=== PATIENT | female | born 1995 | race Caucasian/White ===

== ENCOUNTER 2016-10-27 15:03 | Emergency (ER) | payer SELFPAY ==
[2016-10-27 16:03] VITALS: BP 132/61
--- NOTE | 2016-10-27 17:16 | UC ---
Complaint Female HPI - HPI Summary HPI Summary: About 2 weeks ago had yeast infection which she treated successfully with an OTC yeast treatment. Was feeling better for 4-5 days, then since yesterday has had the "mildest sense of a very early UTI." Had pyelonephritis a year ago and is nervous about it returning. Rufus feverish today and other people felt her forehead and thought she might have a fever. Denies vomiting, rash, ST, or other signs of illness. - History Of Current Complaint Chief Complaint: UCGU Stated Complaint: FEVER URINARY ISSUE Time Seen by Provider: 10/27/16 16:44 Hx Obtained From: Patient Hx Last Menstrual Period: 10/18/16 ?: No Onset/Duration: Gradual Onset, Lasting Days Timing: Constant Severity Initially: Mild Severity Currently: Mild Character: Burning Aggravating Factor(s): Urination Associated Signs And Symptoms: Positive: Negative - Allergies/Home Medications Allergies/Adverse Reactions: Allergies Allergy/AdvReac Type Severity Reaction Status Date / Time No Known Allergies Allergy Verified 02/27/16 12:01 Home Medications: Home Medications NK [No Home Medications Reported] 10/27/16 [History Confirmed 10/27/16] PMH/Surg Hx/FS Hx/Imm Hx Previously Healthy: Yes - Surgical History Surgical History: None Surgery Procedure, Year, and Place: no past surgical history - Family History Known Family History: Positive: Other - UTI (mother) Negative: Hypertension, Diabetes, Renal Disease - Social History Lives: Alone Alcohol Use: Rare Substance Use Type: Marijuana Substance Use Comment - Amount & Last Used: occ Smoking Status (MU): Former Smoker Amount Used/How Often: once monthly, hasn't used recently Have You Smoked in the Last Year: Yes - very rarely - Immunization History Most Recent Influenza Vaccination: unk Most Recent Tetanus Shot: current Most Recent Pneumonia Vaccination: n/a Review of Systems Constitutional: Fever - subj Skin: Negative Eyes: Negative ENT: Negative Respiratory: Negative Cardiovascular: Negative Gastrointestinal: Negative Genitourinary: Dysuria Motor: Negative Neurovascular: Negative Musculoskeletal: Negative Neurological: Negative Psychological: Negative All Other Systems Reviewed And Are Negative: Yes Physical Exam Triage Information Reviewed: Yes Appearance: Well-Appearing, No Pain Distress, Thin Vital Signs: Initial Vital Signs Temp 98.2 F 10/27/16 16:00 Pulse 53 10/27/16 16:00 Resp 16 10/27/16 16:00 BP 132/61 10/27/16 16:00 Pulse Ox 100 10/27/16 16:00 Vital Signs Reviewed: Yes Eye Exam: Normal Eyes: Positive: Conjunctiva Clear ENT Exam: Normal ENT: Positive: Normal ENT inspection, Hearing grossly normal, Pharynx normal, TMs normal Dental Exam: Normal Neck exam: Normal Neck: Positive: Supple, Nontender, No Lymphadenopathy Respiratory Exam: Normal Respiratory: Positive: Chest non-tender, Lungs clear, Normal breath sounds, No respiratory distress, No accessory muscle use Cardiovascular Exam: Normal Cardiovascular: Positive: RRR, No Murmur Abdomen Description: Positive: Nontender, Soft. Negative: CVA Tenderness (R), CVA Tenderness (L) Musculoskeletal Exam: Normal Neurological Exam: Normal Neurological: Positive: Alert Psychological Exam: Normal Skin Exam: Normal Complaint Female Dx - Differential Dx/Diagnosis Provider Diagnoses: dysuria Discharge - Discharge Plan Condition: Stable Disposition: HOME Patient Education Materials: Dysuria (ED) Referrals: No Primary Care Phys,NOPCP [Primary Care Provider] - Additional Instructions: As we discussed, neither your symptoms nor your urine dip give any strong indication of infection so we are waiting on a urine culture before considering antibiotics. Please call here if you have new or worsening urinary symptoms; we will be in contact with you if your culture shows a bacterial infection.
== END 2016-10-27 17:15 | disposition home or self-care (01) ==
LOC: UCEAST 15:03
DX: R30.0 Dysuria (principal)
CPT/HCPCS: 81003; 84702; 87086; 99211; G0463

== ENCOUNTER 2017-05-13 15:03 | Emergency (ER) | payer OTHER ==
--- NOTE | 2017-05-13 17:33 | UC ---
Lower Extremity/Ankle HPI - HPI Summary HPI Summary: 21 year old female with no significant pmhx here with complaint of right knee pain after she everted her knee while walking. She reports pain and swelling worsening in the past two days. She has been taking ibuprofen for the pain. No other associated symptoms. - History of Current Complaint Chief Complaint: UCLowerExtremity Stated Complaint: ANKLE INJURY Time Seen by Provider: 05/13/17 17:11 Hx Last Menstrual Period: 03/31/17 Onset/Duration: Sudden Onset Severity Initially: Mild Severity Currently: Moderate Pain Scale Used: 0-10 Numeric Aggravating Factor(s): Ambulation Alleviating Factor(s): Rest - Allergies/Home Medications Allergies/Adverse Reactions: Allergies Allergy/AdvReac Type Severity Reaction Status Date / Time No Known Allergies Allergy Verified 05/13/17 16:35 PMH/Surg Hx/FS Hx/Imm Hx - Surgical History Surgical History: None Surgery Procedure, Year, and Place: no past surgical history - Family History Known Family History: Positive: Other - UTI (mother) Negative: Hypertension, Diabetes, Renal Disease - Social History Alcohol Use: Rare Substance Use Type: Marijuana Substance Use Comment - Amount & Last Used: occ Smoking Status (MU): Former Smoker Amount Used/How Often: once monthly, hasn't used recently Have You Smoked in the Last Year: Yes - very rarely - Immunization History Most Recent Influenza Vaccination: unk Most Recent Tetanus Shot: current Most Recent Pneumonia Vaccination: n/a Review of Systems Constitutional: Negative Skin: Negative Eyes: Negative ENT: Negative Respiratory: Negative Cardiovascular: Negative Gastrointestinal: Negative Genitourinary: Negative Motor: Negative Neurovascular: Negative Musculoskeletal: Edema Neurological: Negative Psychological: Negative All Other Systems Reviewed And Are Negative: Yes Physical Exam Triage Information Reviewed: Yes Appearance: Well-Appearing, No Pain Distress Vital Signs: Initial Vital Signs Temp 36.4 C 05/13/17 16:37 Pulse 67 05/13/17 16:37 Resp 17 05/13/17 16:37 BP 120/59 05/13/17 16:37 Pulse Ox 100 05/13/17 16:37 Eye Exam: Normal ENT Exam: Normal Cardiovascular Exam: Normal Abdominal Exam: Normal Musculoskeletal: Positive: Edema @ - right ankle TTP over right lateral malleolus DP/PT intact no abrasion Diagnostics - Radiology No standard instances Xray Interpretation: Positive (See Comments) - Soft tissues swelling over lateral mall Lower Extremity Course/Dx - Course Course Of Treatment: Ibuprofen and ICE given. Normal gait - Differential Dx/Diagnosis Differential Diagnosis/HQI/PQRI: Fracture (Closed), Sprain, Strain Provider Diagnoses: Ankle sprain Discharge - Discharge Plan Condition: Good Disposition: HOME Referrals: No Primary Care Phys,NOPCP [Primary Care Provider] -
--- NOTE | 2017-05-13 17:48 | RAD ---
HISTORY: Tenderness to palpation over lateral malleolus COMPARISONS: None VIEWS: 4, Frontal and lateral views of the right foot and ankle FINDINGS: BONE DENSITY: Normal. BONES: There is no displaced fracture. JOINTS: There is no arthropathy. ALIGNMENT: There is no dislocation. SOFT TISSUES: There is mild soft tissue swelling along the lateral ankle. OTHER FINDINGS: None. IMPRESSION: SOFT TISSUE SWELLING. NO ACUTE OSSEOUS INJURY TO THE RIGHT FOOT OR RIGHT ANKLE. IF SYMPTOMS PERSIST, RECOMMEND REPEAT IMAGING.
[2017-05-13] MEDS: Ibuprofen TAB* 600 MG PO ONE (17:59)
[2017-05-13 19:15] VITALS: BP 124/70
== END 2017-05-13 18:40 | disposition home or self-care (01) ==
LOC: UCEAST 15:03
DX: S93.401A Sprain of unspecified ligament of right ankle, initial encounter (principal); X50.0XXA Overexertion from strenuous movement or load, initial encounter; Y93.01 Activity, walking, marching and hiking; Y92.9 Unspecified place or not applicable; Y99.9 Unspecified external cause status; F12.90 Cannabis use, unspecified, uncomplicated; Z87.891 Personal history of nicotine dependence
CPT/HCPCS: 99212; A9270-GY; G0463

== ENCOUNTER 2017-06-01 16:34 | Emergency (ER) | payer OTHER ==
[2017-06-01 17:06] VITALS: BP 111/70
--- NOTE | 2017-06-01 17:32 | UC ---
Lower Extremity/Ankle HPI - HPI Summary HPI Summary: Pt presents with continued right ankle pain. She was seen her on 05/13/17 after sustaining an inversion injury to her right ankle. She tells me that she was walking and "turned her ankle weird". XR that day was negative. She was told to take ibuprofen and follow up with ortho if symptoms persisted. She is here today with continued right ankle pain. She tells me that she tried calling Orthopedics, but could never get through to them. 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 When she has a few days off, her ankle will feel fine - but upon returning to her usual work duties , her pain returned. Has been taking 400-600mg ibuprofen daily with good relief. Denies fever, chills, new injury, SOB, numbness, or tingling. - History of Current Complaint Chief Complaint: UCLowerExtremity Stated Complaint: ANKLE INJURY Time Seen by Provider: 06/01/17 17:32 Hx Obtained From: Patient Hx Last Menstrual Period: now Onset/Duration: Gradual Onset Severity Initially: Moderate Severity Currently: Mild Pain Intensity: 3 Pain Scale Used: 0-10 Numeric Aggravating Factor(s): Standing, Ambulation Alleviating Factor(s): Rest Able to Bear Weight: Yes - Allergies/Home Medications Allergies/Adverse Reactions: Allergies Allergy/AdvReac Type Severity Reaction Status Date / Time No Known Allergies Allergy Verified 06/01/17 17:06 PMH/Surg Hx/FS Hx/Imm Hx Previously Healthy: Yes - Surgical History Surgical History: None Surgery Procedure, Year, and Place: no past surgical history - Family History Known Family History: Positive: Other - UTI (mother) Negative: Hypertension, Diabetes, Renal Disease - Social History Occupation: Employed Full-time Lives: Alone Alcohol Use: Rare Substance Use Type: None Smoking Status (MU): Former Smoker Amount Used/How Often: once monthly, hasn't used recently Have You Smoked in the Last Year: Yes - very rarely - Immunization History Most Recent Influenza Vaccination: unk Most Recent Tetanus Shot: current Most Recent Pneumonia Vaccination: n/a Review of Systems Constitutional: Negative Skin: Negative Respiratory: Negative Cardiovascular: Negative Musculoskeletal: Other: - Right ankle pain Neurological: Negative All Other Systems Reviewed And Are Negative: Yes Physical Exam Triage Information Reviewed: Yes Appearance: Well-Appearing, No Pain Distress, Well-Nourished Vital Signs: Initial Vital Signs Temp 99.0 F 06/01/17 17:01 Pulse 72 06/01/17 17:01 Resp 16 06/01/17 17:01 BP 111/70 06/01/17 17:01 Pulse Ox 99 06/01/17 17:01 Vital Signs Reviewed: Yes Respiratory: Positive: Chest non-tender, Lungs clear, Normal breath sounds Cardiovascular: Positive: RRR, No Murmur, Pulses Normal - DP intact, Brisk Capillary Refill - Right foot and all toes Musculoskeletal: Positive: Strength Intact - Right ankle, ROM Intact - Right ankle, No Edema - Right ankle, Other: - Right ankle: Mild TTP over posterolateral malleolus. No obvious bony deformities or increased laxity. Neurological: Positive: Alert, Other: - Sensations intact right foot and all toes. Psychological: Positive: Age Appropriate Behavior Skin: Positive: Other - Right ankle/foot: No ecchymosis or erythema. Lower Extremity Course/Dx - Course Course Of Treatment: Ankle XR: Negative for fracture or malalignment. Gross resolution of previous lateral soft tissue swelling. Ongoing right ankle pain. I placed her in a CAM walking boot and have advised her to try light duty at work for the next 5 days. RICE and call orthopedics at the number provided for a follow up appointment. She is having good relief with ibuprofen, may keep taking 400 to 600mg q8hrs prn. - Differential Dx/Diagnosis Differential Diagnosis/HQI/PQRI: Bursitis, Contusion, Dislocation, Fracture ( Closed), Sprain, Strain, Tendonitis Provider Diagnoses: Right ankle sprain Discharge - Discharge Plan Condition: Stable Disposition: HOME Patient Education Materials: Ankle Sprain (ED) Forms: *Work Release Referrals: No Primary Care Phys,NOPCP [Primary Care Provider] - Jameel Sharma MD [Medical Doctor] - As Soon As Possible Additional Instructions: If you develop a fever, shortness of breath, chest pain, new or worsening symptoms - please call your PCP or go to the ED. 1) Use the CAM boot as much as possible while your ankle is healing. May take ibuprofen 600mg every 8 hours as needed for pain/swelling. 2) Try light duty at work for the rest of the week. Rest, ice, and elevate your ankle when at home. 3) Please call the number below to schedule a follow up appointment with Orthopedics.
--- NOTE | 2017-06-01 17:45 | RAD ---
Indication: Continued posterior RIGHT ankle pain and swelling following twisting injury 3 weeks ago. Comparison: May 13, 2017 Technique: AP, mortise, and lateral views RIGHT ankle. Report: Normal articular alignment and preserved joint spaces. Negative for fracture or osteochondral lesion. Unremarkable soft tissue contours. IMPRESSION: Negative for fracture or malalignment. Gross resolution of previous lateral soft tissue swelling.
== END 2017-06-01 18:15 | disposition home or self-care (01) ==
LOC: UCEAST 16:34
DX: S93.401A Sprain of unspecified ligament of right ankle, initial encounter (principal); Z87.891 Personal history of nicotine dependence; X50.9XXA Other and unspecified overexertion or strenuous movements or postures, initial encounter; Y92.9 Unspecified place or not applicable
CPT/HCPCS: 99212; G0463

== ENCOUNTER 2019-02-22 19:35 | Emergency (ER) | payer OTHER ==
[2019-02-22 19:58] VITALS: BP 119/60
--- NOTE | 2019-02-22 20:45 | UC ---
General HPI - HPI Summary HPI Summary: Pt had cold sx, resolved. Now with 3 days congestion, cough, fever to 103 and fatigue. ears feels plugged. no rash. taking OTC meds with improvedment. No wolfe , vision changes works as fountain waitress/waiter. not medications reviewed - History of Current Complaint Chief Complaint: UCRespiratory Stated Complaint: FEVER, COUGH Time Seen by Provider: 02/22/19 20:42 Hx Obtained From: Patient Hx Last Menstrual Period: 1 month ago Onset/Duration: Gradual Onset Onset Severity: Mild Current Severity: Moderate Pain Intensity: 5 - Allergy/Home Medications Allergies/Adverse Reactions: Allergies Allergy/AdvReac Type Severity Reaction Status Date / Time No Known Allergies Allergy Verified 02/22/19 19:52 Home Medications: Home Medications D-Methorphan/PE/Acetaminophen [Cold Relief/Non-Drowsy/Da 10-5-325 mg] 1 tab PO Q12HR PRN 02/22/19 [History Confirmed 02/22/19] PMH/Surg Hx/FS Hx/Imm Hx Previously Healthy: Yes - Surgical History Surgical History: None Surgery Procedure, Year, and Place: no past surgical history - Family History Known Family History: Positive: Other - UTI (mother) Negative: Hypertension, Diabetes, Renal Disease - Social History Occupation: Employed Part-time Lives: With Family Alcohol Use: Weekly Substance Use Type: Marijuana Substance Use Comment - Amount & Last Used: occasionally Smoking Status (MU): Current Some Day Smoker Amount Used/How Often: once monthly, hasn't used recently Have You Smoked in the Last Year: Yes - very rarely - Immunization History Most Recent Influenza Vaccination: unk Most Recent Tetanus Shot: current Most Recent Pneumonia Vaccination: n/a Review of Systems All Other Systems Reviewed And Are Negative: Yes Constitutional: Positive: Fever, Fatigue ENT: Positive: Ear Ache, Sinus Congestion Respiratory: Positive: Cough. Negative: Shortness Of Breath Cardiovascular: Positive: Negative Gastrointestinal: Positive: Negative Physical Exam - Summary Physical Exam Summary: Vital Signs Reviewed: Yes A+Ox3, no distress, mild cough Eyes: Conjunctiva Clear, JOSE G. EOM intact and full ENT: Hearing grossly normal TM x 2 visualized, mild edema left ear, mmoist, uvula midline, no exudate, no erythema Neck: Positive: Supple Respiratory: Positive: No respiratory distress, No accessory muscle use mild cough slight rhonci right base, no wheeze, no accesssory muscle Crdiovascular: RRR nl s1, s2 no m/r CBT <2 sec abd soft + BS nt/nd no guarding, no distension Musculoskeletal Exam: WATERS x 4 without difficulty Strength Intact, ROM Intact Neurological: Positive: Alert, + sensation throughout Psychological: Positive: Normal Response To circular tank cooper Skin: Positive: no rash, no ecchymosis Triage Information Reviewed: Yes Vital Signs: Initial Vital Signs Temp 100.8 F 02/22/19 19:53 Pulse 92 02/22/19 19:53 Resp 18 02/22/19 19:53 BP 119/60 02/22/19 19:53 Pulse Ox 97 02/22/19 19:53 Diagnostics - Radiology No standard instances Radiology Interpretation Completed By: ED Physician - RLDillon pna Re-Evaluation - Re-Evaluation First Eval Comment: reviewed cxr - aware prelim read. hdyarte. secretion precuation. abx. wor notes. return precautions Course/Dx - Course Course Of Treatment: Pt with congestion, fever, cough progressive x 3 days. Pt with occasional smoking vss pt with head congestion, slight rhonci right base will check chest xray, rapid strep, reassess - Diagnoses Provider Diagnosis: Pneumonia, community acquired Discharge ED - Sign-Out/Discharge Documenting (check all that apply): Patient Departure All imaging exams completed and their final reports reviewed: No - Discharge Plan Condition: Stable Disposition: HOME Prescriptions: Amoxicillin/Clavulanate TAB* [Augmentin TAB 875*] 875 mg PO BID #20 tab Patient Education Materials: Ear Infection (ED), Community Acquired Pneumonia ( ED) Forms: *Work Release Referrals: [facility] [place] PHYSICIAN REFERRAL [Outside] No Primary Care Phys,NOPCP [Primary Care Provider] - Additional Instructions: - Okay to alternate ibuprofen (Advil, Motrin) and Tylenol every 3 hours for fever and pain. Take with food. Do NOT take for more than 4-5 days - Okay to gargle and spit every 4 hours as needed for pain - Stay well hydrated - frequent sips of cold fluids will be soothing to your throat (popsicles, jello, ice cream, ice water). Avoid excess caffeine until your symptoms have resolved. - Do not share eating, drinking utensils. Throw out your toothbrush when your symptoms resolved -Throat infections are spread by oral secretions - do not share eating or drinking utensils until you symptoms are resolved. Clean items that may get your secretions such as cell phones, ipads, computer mouse, television remotes. Once you have been on antibiotics for 2 days, change your toothbrush and your pillowcase - get plenty of restful sleep - okay to take over the counter decongestant and cough mediations - Contact your doctor to arrange a follow-up appointment as needed As discussed your imaging study was not reviewed by a radiologist ernestine. A radiologist will review tomorrow - if there is a different treatment plan you will receive a call from a care application development team lead - Billing Disposition and Condition Condition: STABLE Disposition: Home
[2019-02-22] MEDS ORDERED: Ibuprofen TAB* 600 MG PO ONE (20:51)
[2019-02-22] MEDS ORDERED: Amoxicillin/Clavulanate TAB* 875 MG PO ONE (21:08)
--- NOTE | 2019-02-23 12:12 | UC ---
- Progress Note Progress Note: Final radiologist reading of chest x-ray from February 23, 2019 comes back as right lower lobe consolidation. Provider interpretation same date is right lower lobe pneumonia therefore there is no discrepancy. Course/Dx - Diagnoses Provider Diagnoses: Pneumonia, community acquired Discharge ED - Sign-Out/Discharge Documenting (check all that apply): Patient Departure All imaging exams completed and their final reports reviewed: Yes - Discharge Plan Condition: Stable Disposition: HOME Prescriptions: Amoxicillin/Clavulanate TAB* [Augmentin TAB 875*] 875 mg PO BID #20 tab Patient Education Materials: Ear Infection (ED), Community Acquired Pneumonia ( ED) Forms: *Work Release Referrals: [facility] [place] PHYSICIAN REFERRAL [Outside] No Primary Care Phys,NOPCP [Primary Care Provider] - Additional Instructions: - Okay to alternate ibuprofen (Advil, Motrin) and Tylenol every 3 hours for fever and pain. Take with food. Do NOT take for more than 4-5 days - Okay to gargle and spit every 4 hours as needed for pain - Stay well hydrated - frequent sips of cold fluids will be soothing to your throat (popsicles, jello, ice cream, ice water). Avoid excess caffeine until your symptoms have resolved. - Do not share eating, drinking utensils. Throw out your toothbrush when your symptoms resolved -Throat infections are spread by oral secretions - do not share eating or drinking utensils until you symptoms are resolved. Clean items that may get your secretions such as cell phones, ipads, computer mouse, television remotes. Once you have been on antibiotics for 2 days, change your toothbrush and your pillowcase - get plenty of restful sleep - okay to take over the counter decongestant and cough mediations - Contact your doctor to arrange a follow-up appointment as needed As discussed your imaging study was not reviewed by a radiologist ernestine. A radiologist will review tomorrow - if there is a different treatment plan you will receive a call from a care clinical team lead - Billing Disposition and Condition Condition: STABLE Disposition: Home
== END 2019-02-22 21:30 | disposition home or self-care (01) ==
LOC: UCEAST 19:35
DX: J18.9 Pneumonia, unspecified organism (principal); F17.210 Nicotine dependence, cigarettes, uncomplicated
CPT/HCPCS: 71046; 87651; 99212; A9270-GY; G0463